=== PATIENT | female | born 1975 | race Caucasian/White ===

== ENCOUNTER 2020-11-12 13:38 | Emergency (ER) | payer OTHER ==
[~2020-11-12] VITALS: Ht 162.6 cm; Wt 81.6 kg
[~2020-11-12 13:38] MED LIST: COZAAR25 MG; SYNTHROID125 MCG
[2020-11-12] MEDS ORDERED: TOPROL XL50 M1 PO (13:58)
[2020-11-12] MEDS ORDERED: DICLOFENAC POTA50 MG PO (16:27)
[2020-11-12] MEDS ORDERED: INTESTINEX680 M1 PO (16:27)
[2020-11-12] MEDS ORDERED: CLINDAMYCIN HC300 MG PO (16:27)
== END 2020-11-12 16:45 | disposition home or self-care (01) ==
LOC: ER 13:38
DX: S81.022A Laceration with foreign body, left knee, initial encounter (principal); L03.116 Cellulitis of left lower limb; W54.0XXA Bitten by dog, initial encounter; Y93.89 Activity, other specified; Y92.89 Other specified places as the place of occurrence of the external cause; Y99.8 Other external cause status